=== PATIENT | female | born 1960 | race Caucasian/White ===

== ENCOUNTER 2020-10-06 16:11 | Inpatient (IN) | payer SELFPAY ==
[~2020-10-06] VITALS: Ht 157.5 cm; Wt 157.5 kg
[2020-10-06 17:04] LABS: BASOPHILS ABSOLUTE AUTO 0.02 K/mm3 (0.00-0.23); BASOPHILS PERCENT AUTO 0 % (0-2); EOSINOPHILS ABSOLUTE AUTO 0.01 K/mm3 (0.00-0.68); EOSINOPHILS PERCENT AUTO 0 % (0-6); Hematocrit 42.5 % (33.0-51.0); Hemoglobin 14.5 g/dL (11.5-16.0); IMMATURE GRAN ABSOLUTE AUTO 0.07 K/mm3 (0.00-0.10); IMMATURE GRAN PERCENT AUTO 1 % (0-1); LYMPHOCYTES ABSOLUTE AUTO 0.56 K/mm3 (0.84-5.20); LYMPHOCYTES PERCENT AUTO 5 % (21-46); MONOCYTES ABSOLUTE AUTO 0.47 K/mm3 (0.16-1.47); MONOCYTES PERCENT AUTO 4 % (4-13); Mean Corpuscular HGB 28.8 pg (26.0-34.0); Mean Corpuscular HGB Conc 34.1 g/dL (31.5-36.5); Mean Corpuscular Volume 84 fL (80-100); Mean Platelet Volume 9.4 fL (9.1-12.4); NEUTROPHILS ABSOLUTE AUTO 9.91 K/mm3 (1.96-9.15); NEUTROPHILS PERCENT AUTO 90 % (41-73); Platelet Count 281 K/mm3 (150-400); RDW Coefficient Variation 12.9 % (11.7-14.2); Red Blood Cell Count 5.04 M/mm3 (3.80-5.20); White Blood Cell Count 11.04 K/mm3 (4.00-11.30)
[2020-10-06 17:35] LABS: Troponin I <0.015 ng/mL (0.000-0.040)
[2020-10-06 17:36] LABS: Alanine Aminotransfer (ALT/SGP 174 U/L (12-78); Albumin, Blood 2.7 g/dL (3.4-5.0); Albumin/Globulin Ratio 0.6 (0.8-1.8); Alk Phos 135 U/L (50-136); Anion Gap 5 mmol/L (6-16); Aspartate Aminotrans (AST/SGOT 194 U/L (12-37); Bilirubin, Total 1.3 mg/dL (0.1-1.0); Blood Urea Nitrogen 20 mg/dL (8-24); CO2, Blood 30 mmol/L (21-32); Calcium, Blood 8.2 mg/dL (8.5-10.1); Chloride, Blood 100 mmol/L (98-108); Globulin, Blood 4.5 g/dL (2.2-4.0); Glomerular Filtration Rate 57 (60-); Glucose, Blood 132 mg/dL (70-99); Potassium, Blood 3.2 mmol/L (3.5-5.5); Sodium, Blood 135 mmol/L (136-145); Total Protein, Blood 7.2 g/dL (6.4-8.2)
[2020-10-07 05:26] LABS: BASOPHILS ABSOLUTE AUTO 0.01 K/mm3 (0.00-0.23); BASOPHILS PERCENT AUTO 0 % (0-2); EOSINOPHILS PERCENT AUTO 0 % (0-6); Hematocrit 41.6 % (33.0-51.0); Hemoglobin 13.9 g/dL (11.5-16.0); IMMATURE GRAN ABSOLUTE AUTO 0.08 K/mm3 (0.00-0.10); IMMATURE GRAN PERCENT AUTO 1 % (0-1); LYMPHOCYTES ABSOLUTE AUTO 0.62 K/mm3 (0.84-5.20); LYMPHOCYTES PERCENT AUTO 5 % (21-46); MONOCYTES ABSOLUTE AUTO 0.41 K/mm3 (0.16-1.47); MONOCYTES PERCENT AUTO 3 % (4-13); Mean Corpuscular HGB 28.4 pg (26.0-34.0); Mean Corpuscular HGB Conc 33.4 g/dL (31.5-36.5); Mean Corpuscular Volume 85 fL (80-100); Mean Platelet Volume 9.1 fL (9.1-12.4); NEUTROPHILS ABSOLUTE AUTO 11.51 K/mm3 (1.96-9.15); NEUTROPHILS PERCENT AUTO 91 % (41-73); Platelet Count 274 K/mm3 (150-400); RDW Coefficient Variation 12.8 % (11.7-14.2); RDW Standard Deviation 39.8 fL (35.1-46.3); White Blood Cell Count 12.63 K/mm3 (4.00-11.30)
--- NOTE | 2020-10-07 05:33 | NUR ---
SHIFT SUMMARY REPORT HEATHER KINCAID, PT TO ROOM VIA STRETCHER @2770 AND SLID TO THE BED. PT IS ALERT AND ORIENTED X4, FOLLOWS COMMANDS. 02 SATS 88-92% ON BIPAP 21/12 FI02 100% RR 30s-40s, ATIVAN HELPS. DYSPNEA WITH EXERTION AND SPEAKING. UNABLE TO ANSWER HISTORY QUESTIONS DUE TO OXYGEN NEEDS AND 02 SATS DROPPING TO 79%. PATIENT NAUSEOUS AT TIMES, MEDICATED PER EMAR. BECOMES VERY SOB WHEN BEING TURNED. PT PULLS OFF BIPAP EVEN THOUGH SHE KNOWS RISK OF DOING THIS. REPOSITIONED AND CHANGED Q2 HOURS. INCONTINENT AT TIMES. NPO. CALL LIGHT IN REACH.
[2020-10-07 05:56] LABS: Alanine Aminotransfer (ALT/SGP 146 U/L (12-78); Albumin, Blood 2.4 g/dL (3.4-5.0); Albumin/Globulin Ratio 0.5 (0.8-1.8); Alk Phos 131 U/L (50-136); Anion Gap 6 mmol/L (6-16); Aspartate Aminotrans (AST/SGOT 102 U/L (12-37); Bilirubin, Total 0.8 mg/dL (0.1-1.0); Blood Urea Nitrogen 19 mg/dL (8-24); Bun/Creatinine Ratio 22.6 (12.0-20.0); CO2, Blood 27 mmol/L (21-32); Calcium, Blood 8.3 mg/dL (8.5-10.1); Chloride, Blood 103 mmol/L (98-108); Creatinine, Blood 0.84 mg/dL (0.40-1.00); Globulin, Blood 4.8 g/dL (2.2-4.0); Glomerular Filtration Rate >60 (60-); Glucose, Blood 137 mg/dL (70-99); Sodium, Blood 136 mmol/L (136-145); Total Protein, Blood 7.2 g/dL (6.4-8.2)
--- NOTE | 2020-10-07 07:35 | NUR ---
INITIAL ASSESSMENT: PT IS RESTING WITH EYES CLOSED RESP E/U, BI-PAP ON SETTINGS 16/10 FIO2 100%. PT EASILY AWAKENS WITH VERBAL STIMULI. DENEIS PAIN AT THIS TIME. HRR. LS DIM T/O. DISCUSSED PRONING AND/OR TURNING TO HELP WITH OXYGENATION. OXYGEN SATURATIONS CURRENTLY 87-88%. BT+. PPP. OTHER VSS. WHEN ASKED ABOUT PLAN OF CARE PT STATES SHE WANTS TO STAY ON THE CURRENT REGEMINE, PT REITERATES SHE DOES NOT WANT TO BE INTUBATED. AM MEDS GIVEN AT THIS TIME. PT DENEIS NEEDS. CALL LIGHT IN REACH, WILL CONTINUE TO MONITOR.
--- NOTE | 2020-10-07 09:50 | NUR ---
Pal Care Note: Contacted by RN due to pt's worsening resp status, with request to contact family, especially , who is currently long haul septic pump truck [place] I was able to reach both and pt's eileen, Amarilys, who was with her mom at [facility] yesterday. Update provided to them re: pt's cont decline and max resp support provided within her stated and confirmed wishes of DNR/DNI. is getting on a flight home tomorrow. His questions were answered and time spent supporting and listening. He states Catrachita has suffered with severe chronic pain for at least 10 years and that they have discussed their DNR wishes for about 20 years now and she has been consistent. Eileen also confirms this. Pt and family want to cont tx as is and verbalize understanding that pt has a very guarded, precarious prognosis and likelihood of further decline. Also had long conversation with Amarilys and was able to get permission for 5 total family memebers to come in for short visit today. They were coached on screening criteria, pt's profound fatigue and inability to converse, PPE, straight in/out. Screeners notified of permission for family to visit. Discussed s/s and medications available prn with RN. Discussed current plan of care and concerns.
--- NOTE | 2020-10-07 11:30 | NUR ---
PT GIVEN A BED BATH. WOUND UNDER LEFT BREAST WITH SLIGHT TUNNELING NOTED OOZING PURLENT YELLOW FLUID, CLEANSED. ATTENDS AND LINEN CHANGE. RASHID PLACED FOR STRICT I&O AND TO DECREASE PT EXERTION, DARK YELLOW URINE DRAINING, UA SENT. VSS. DISCUSSED WITH PALLIATIAVE CARE PTS FRAGILE STATUS. CALLS PLACED TO DAUGHTER, PLAN TO HAVE FAMILY COME TO SEE THE PATIENT TODAY. CALL PLACED TO TO HAVE HIM COME HOME SO HE CAN SEE HIS . PT HAS POOR TOLERANCE OF BEING OFF THE BI-PAP AND TURINING. SATS DROP DOWN TO THE 70S. CALL LIGHT IN REACH. WILL CONTINUE TO MONITOR.
[2020-10-07 12:08] LABS: Source, Urine Catheter
[2020-10-07 12:17] LABS: Appearance, Urine Clear (Clear); Bilirubin, Urine Neg (Neg); Blood, Urine 2+ (Neg); Color, Urine Yellow (P-Yellow); Glucose Qualitative, Urine Neg (Neg); Ketones, Urine 3+ (Neg); Leukocyte Esterase, Urine 1+ (Neg); Nitrite, Urine Neg (Neg); Protein, Urine 2+ (Neg); Urobilinogen, Urine 1+ (Normal)
[2020-10-07 12:31] LABS: Bacteria Many /hpf; Squamous Epithelial Cells Few /hpf (Few)
--- NOTE | 2020-10-07 15:30 | NUR ---
SON AT BEDSIDE. ASSESSMENT UNCHANGED. BIOX 85-90% WITH BI-PAP SETTINGS 16 FIO2 100%. IV ABX AND IV REMDESVIR GIVEN AT THIS TIME. OTHER VSS. PT AND FAMILY DENIES NEEDS AT THIS TIME. CALL LIGHT IN REACH. WILL CONTINUE TO MONITOR.
--- NOTE | 2020-10-07 18:38 | NUR ---
SUMMARY: PATIENT WAS ADMITTED WITH COVID LAST EVENING. SINCE ADMISSION HER OXYGEN REQUIREMENTS HAVE BEEN MAXED OUT WITH BI-PAP SETTINGS 16/13 AND FIO2 100%. FAMILY HAS BEEN AT BEDSIDE FOR ADVANCED CARE PLANNING. WILL CONTINUE COURSE OF TX. PT WISHES STILL REMAIN TO BE DNR. WILL REPORT TO ONCOMING RN.
[2020-10-08 04:19] LABS: BASOPHILS ABSOLUTE AUTO 0.01 K/mm3 (0.00-0.23); BASOPHILS PERCENT AUTO 0 % (0-2); EOSINOPHILS PERCENT AUTO 0 % (0-6); Hematocrit 40.6 % (33.0-51.0); Hemoglobin 13.5 g/dL (11.5-16.0); IMMATURE GRAN ABSOLUTE AUTO 0.05 K/mm3 (0.00-0.10); IMMATURE GRAN PERCENT AUTO 1 % (0-1); LYMPHOCYTES PERCENT AUTO 9 % (21-46); MONOCYTES ABSOLUTE AUTO 0.82 K/mm3 (0.16-1.47); MONOCYTES PERCENT AUTO 9 % (4-13); Mean Corpuscular HGB 28.7 pg (26.0-34.0); Mean Corpuscular HGB Conc 33.3 g/dL (31.5-36.5); Mean Corpuscular Volume 86 fL (80-100); Mean Platelet Volume 9.3 fL (9.1-12.4); NEUTROPHILS ABSOLUTE AUTO 7.42 K/mm3 (1.96-9.15); NEUTROPHILS PERCENT AUTO 82 % (41-73); Platelet Count 354 K/mm3 (150-400); RDW Coefficient Variation 13.1 % (11.7-14.2); RDW Standard Deviation 41.2 fL (35.1-46.3)
[2020-10-08 04:41] LABS: Anion Gap 6 mmol/L (6-16); Blood Urea Nitrogen 21 mg/dL (8-24); Bun/Creatinine Ratio 26.5 (12.0-20.0); CO2, Blood 28 mmol/L (21-32); Calcium, Blood 8.5 mg/dL (8.5-10.1); Chloride, Blood 105 mmol/L (98-108); Creatinine, Blood 0.79 mg/dL (0.40-1.00); Glomerular Filtration Rate >60 (60-); Glucose, Blood 120 mg/dL (70-99); Potassium, Blood 3.7 mmol/L (3.5-5.5); Sodium, Blood 139 mmol/L (136-145)
--- NOTE | 2020-10-08 05:01 | NUR ---
SHIFT SUMMARY PATIENT IS ALERT AND ORIENTED X3, HAD TROUBLE REMEMBERING WHERE SHE IS, ABLE TO STATE THE YEAR, MONTH, RECOGNIZES FAMILY. 02 SATS 90-95% ON BIPAP @ FI02 100%. ORAL CARE PROVIDED. PATIENTS SATS STILL DROP TO 80% WHEN BEING TURNED. PATIENT KEPT MASK ON ALL SHIFT. REPOSITIONED Q2 HOURS. PICTURE OF LEFT BREAST WOUND IN CHART. RASHID DRAINING. SON WAS IN ROOM AT BEGINNING OF SHIFT BUT LEFT AFTER A COUPLE OF HOURS. UPDATED ON THE PHONE. VSS, NO ACUTE CHANGES. CALL LIGHT IN REACH.
--- NOTE | 2020-10-08 08:45 | NUR ---
INITIAL ASSESSMENT: PATIENT IS AWAKE, SHE PULLED HER BI-PAP OFF AND IS SCRABLING TO FIND HER CALL LIGHT, PT STATES SHE NEEDS TO HAVE A BM. PT ASSISTED TO PLACE BI-PAP BACK ON. PT ASSISTED TO GET ON BED EDWARDS, MED LOOSE BROWN BM NOTED. PT DENIES PAIN AT THIS TIME. HRR, SR IN THE 60S PER TELEMETRY. LS DIM T/O. OXYGEN NEEDS HAVE SLIGHTLY DECREASED PT HAS BEEN BI-PAP DEPENDENT SETTINGS WITH FIO2 95%, BIOX 88-89%. PT ASSISTED TO TURN TO RIGHT SIDE. ORAL CARE DONE. VSS. PT DENIES OTHER NEEDS AT THIS TIME. CALL LIGHT IN REACH. WILL CONTINUE TO MONITOR.
--- NOTE | 2020-10-08 11:30 | NUR ---
ASSESSMENT: UNCHANGED FROM INITIAL ASSESSMENT. FLAT SURFACER WAS ABLE TO TITRATE PATIENTS FIO2 DOWN TO 90% ON THE BI-PAP. POWERGLIDE PLACED. VSS. SON AT BEDSIDE. PT DENIES OTHER NEEDS AT THIS TIME. CALL LIGHT IN REACH. WILL CONTINUE TO MONITOR.
[2020-10-08 14:22] LABS: SARS-Cov-2 (COVID-19) PCR, MMC POSITIVE (NEGATIVE)
--- NOTE | 2020-10-08 15:30 | NUR ---
ASSESSMENT: ASSESSMENT IS UNCHANGED FROM EARLIER. PT GIVEN BED BATH. VSS. FIO2 DECREASED DOWN TO 85%. PT REPOSITIONED. PT AND SON DENY FURTHER NEEDS. CALL LIGHT IN REACH.
--- NOTE | 2020-10-08 17:33 | NUR ---
SUMMARY: PATIENT HAS MADE A SMALL IMPROVEMENT TODAY. FIO2 REQUIREMENTS HAVE BEEN DECREASED FROM 100% DOWN TO 85%, BIOX LOW 90S. LS DIM THE IN THE BASES. VSS. NO ACUTE CHANGES THIS SHIFT, WILL REPORT TO NOC RN.
[2020-10-09 05:17] LABS: BASOPHILS ABSOLUTE AUTO 0.01 K/mm3 (0.00-0.23); BASOPHILS PERCENT AUTO 0 % (0-2); EOSINOPHILS PERCENT AUTO 0 % (0-6); Hematocrit 40.9 % (33.0-51.0); Hemoglobin 13.4 g/dL (11.5-16.0); IMMATURE GRAN ABSOLUTE AUTO 0.15 K/mm3 (0.00-0.10); IMMATURE GRAN PERCENT AUTO 2 % (0-1); LYMPHOCYTES ABSOLUTE AUTO 0.78 K/mm3 (0.84-5.20); LYMPHOCYTES PERCENT AUTO 8 % (21-46); MONOCYTES ABSOLUTE AUTO 0.81 K/mm3 (0.16-1.47); MONOCYTES PERCENT AUTO 8 % (4-13); Mean Corpuscular HGB 28.3 pg (26.0-34.0); Mean Corpuscular HGB Conc 32.8 g/dL (31.5-36.5); Mean Corpuscular Volume 86 fL (80-100); Mean Platelet Volume 9.1 fL (9.1-12.4); NEUTROPHILS ABSOLUTE AUTO 8.34 K/mm3 (1.96-9.15); NEUTROPHILS PERCENT AUTO 83 % (41-73); Platelet Count 425 K/mm3 (150-400); RDW Standard Deviation 40.9 fL (35.1-46.3); Red Blood Cell Count 4.74 M/mm3 (3.80-5.20); White Blood Cell Count 10.09 K/mm3 (4.00-11.30)
--- NOTE | 2020-10-09 05:30 | NUR ---
SHIFT SUMMARY ASSUMED CARE OF PT AT 1900. PT IS A/OX4. PT EXPRESSION IS VERY FLAT AND WITHDRAWN. PT USES HEAD NODS COMMUNICATION DUE TO SOB. PT REMAINS ON THE BIPAP AT FULL CAPACITY. SATURATIONS WERE FROM 83-92%, MOSTLY IN THE HIGH 80S. PT WILL MESS WITH THE BIPAP IN HER SLEEP AND WILL DESATURATE TO 80%, 75% AT ONE POINT IN THE NIGHT. PT WAS REPOSITIONED ON HER SIDE TOLERATED, BUT WOULD ROLL BACK TO HER BACK WHEN REASSESSED. PT CATHER DRAINED 440CC OF DARK IZAIAH URINE. PT HAS A SMALL WOUND UNDER HER L BREAST, DRESSING C/D/I, POWDER APPLIED TO FOLDS. MEPILEX ON PT BOTTOM, DRESSING C/D/I. POWERGILDE DRAWS AND FLUSHES WELL. PT CONTACT LIST WAS UPDATED WITH PERSONS AVAILBLE TO BE NOTIFIED OF CARE. CALL LIGHT IN REACH, BED IN LOWEST POSTION.
[2020-10-09 05:32] LABS: Anion Gap 6 mmol/L (6-16); Blood Urea Nitrogen 23 mg/dL (8-24); Bun/Creatinine Ratio 28.7 (12.0-20.0); CO2, Blood 29 mmol/L (21-32); Calcium, Blood 8.5 mg/dL (8.5-10.1); Chloride, Blood 104 mmol/L (98-108); Glomerular Filtration Rate >60 (60-); Glucose, Blood 119 mg/dL (70-99); Potassium, Blood 3.7 mmol/L (3.5-5.5); Sodium, Blood 139 mmol/L (136-145)
--- NOTE | 2020-10-09 10:30 | NUR ---
Pal Care note: Met with Bladimir outside of pt's room at his request. Pt was sleeping when I arrived with bipap on and did not wake to letting her know he was stepping her out of the room. She looks profoundly fatigued, as expected. Bladimir states that he feels Catrachita's mentation and orientation are at baseline and that when she is awake she is coherent and able to make her own decision. asked if his was suffering with pain. We reviewed non- verbal indicators. He reports that he is seeing some nonverbal indicators of restlessness and discomfort but other than severe dyspnea and overwhelming fatigue, pt has not complained of pain or discomfort. He states he feels like she is already "gone" from him. We discussed her need to focus inward and to expend all energies towards breathing and recovery if she is able. states her wanted to stay home and but was coerced by family into calling 911 and being transported to the hospital. They have discussed their advanced care/EOL wishes with eachother for decades and Bladimir reports that pt's quality of life was poor by her standards prior to this event. He feels that pt is able to make her own decision and understands that if pt becomes confused or experiences decreased LOC due to hypoxia or illness that he will become her decision maker. At this time he feels is ok with continuing treatment as is. He said they have been talking about it since he arrived yesterday. He will let her nurse know if they feel current treatment is prolonging any suffering and if they want to transition to comfort care. We discussed what comfort care looks like her in the hospital and which treatments would be continued or discontinued to support Catrachita's goal of comfort if she decides on that goal of care. Pt's RN included in the conversation towards the end and she is updated on the plan. Dr updated on the plan also and I case conferenced with him prior to my visit. Pt's KPS score is 20% and her PPS score is 20-30% at this time. Pt is bipap dependent and saturations drop into the 70's from baseline of 80's with any movement or exertion, such as taking sips of fluid or turning. She is half way thru her Remdesivir tx.
--- NOTE | 2020-10-09 17:34 | NUR ---
PT SUMMARY: PT REMAINS ON MAX 100% BIPAP INCREASED PRESSURE SETTINGS TO 17/15 PT SATTING 80-88%. SECOND DOSE OF REMDESIVIR GIVEN TODAY. AT BEDSIDE MOST OF THE SHIFT, WAS ABLE TO HAVE DISCUSSION WITH THE PALLIATIVE CARE NURSE ABOUT THE PLAN AND IS ENCOURAGED TO WAIT TIL AFTER 2 MORE DOSES OF REMDESIVIR TO SEE HOW THE PATIENT RESPONDS AND DECIDE FROM THERE. PT ALSO AGREEABLE WITH THE PLAN. PT REPOSITIONED IN BED FOR COMFORT AND BETTER BREATHING. TAKES SIPS OF WATER /ICE CHIPS FOR DRY MOUTH. NO OTHER COMPLAINS REPORTED. REMAINS ON THE BEDSIDE CALL LIGHTS IN REACH WILL MONITOR.
[2020-10-10 03:57] LABS: BASOPHILS ABSOLUTE AUTO 0.01 K/mm3 (0.00-0.23); BASOPHILS PERCENT AUTO 0 % (0-2); EOSINOPHILS ABSOLUTE AUTO 0.01 K/mm3 (0.00-0.68); EOSINOPHILS PERCENT AUTO 0 % (0-6); Hematocrit 40.1 % (33.0-51.0); Hemoglobin 13.2 g/dL (11.5-16.0); IMMATURE GRAN ABSOLUTE AUTO 0.17 K/mm3 (0.00-0.10); IMMATURE GRAN PERCENT AUTO 2 % (0-1); LYMPHOCYTES ABSOLUTE AUTO 0.82 K/mm3 (0.84-5.20); LYMPHOCYTES PERCENT AUTO 9 % (21-46); MONOCYTES PERCENT AUTO 8 % (4-13); Mean Corpuscular HGB 28.3 pg (26.0-34.0); Mean Corpuscular HGB Conc 32.9 g/dL (31.5-36.5); Mean Corpuscular Volume 86 fL (80-100); Mean Platelet Volume 8.8 fL (9.1-12.4); NEUTROPHILS ABSOLUTE AUTO 7.66 K/mm3 (1.96-9.15); NEUTROPHILS PERCENT AUTO 81 % (41-73); Platelet Count 461 K/mm3 (150-400); RDW Coefficient Variation 12.8 % (11.7-14.2); RDW Standard Deviation 40.3 fL (35.1-46.3); Red Blood Cell Count 4.67 M/mm3 (3.80-5.20); White Blood Cell Count 9.47 K/mm3 (4.00-11.30)
[2020-10-10 04:13] LABS: Anion Gap 7 mmol/L (6-16); Blood Urea Nitrogen 21 mg/dL (8-24); Bun/Creatinine Ratio 29.2 (12.0-20.0); CO2, Blood 30 mmol/L (21-32); Calcium, Blood 8.3 mg/dL (8.5-10.1); Chloride, Blood 105 mmol/L (98-108); Creatinine, Blood 0.72 mg/dL (0.40-1.00); Glomerular Filtration Rate >60 (60-); Glucose, Blood 120 mg/dL (70-99); Potassium, Blood 3.5 mmol/L (3.5-5.5); Sodium, Blood 142 mmol/L (136-145)
--- NOTE | 2020-10-10 06:24 | NUR ---
SHIFT SUMMARY NO ACUTE CHANGES THIS SHIFT. PT RESPONDING TO VERBAL STIMULI BUT DROWSY. SP02 84-94% ON BIPAP 100% FI02. PT SHALLOW BREATHING. PULLED OFF BIPAP X1, ATTEMPTED TO DO SO MULTIPLE TIMES, PT ENCOURAGED TO LEAVE BIPAP ON. TELEMETRY READS NSR, HR 60'S. RASHID CATHETER DRAINING DARK URINE TO GRAVITY. NO BM THIS SHIFT. PT WAS REPOSITIONED Q2H, CURRENTLY FLOATING ON PILLOWS. CALL LIGHT IN REACH.
--- NOTE | 2020-10-10 15:39 | NUR ---
Made a visit at approx 1345. Pt's just left the room per RN. Pt does exhibit less anxiety when present. When left, pt was able to pull the facial mask off enough that RN had to assist with putting it back in place. Today was day 4 of 4 doses of remdesevir. Pt's 02 has improved, but will need to continue for pt to d/c home safely, per . However, pt's continues to voice concern regarding her ability to "bounce back" from this. ADL's: Pt currently only able to perform 1-2 with partial assist Cognitive status: Pt answers most questions appropriately Risk Factors: Covid, obesity, resp failure ongoing
--- NOTE | 2020-10-10 18:36 | NUR ---
PT REMAINS ON CONTINUOUS BIPAP AT 75% AT THE END OF THE SHIFT. S/O IS AT BEDSIDE AND HAS BEEN PROVIDED WITH CONTINUOUS UPDATES THEY BECAME AVAILABLE. PT MORE ALERT THIS EVENING, SMILING AND INTERACTING WITH STAFF. PT ANSWERS IN NODS AND 1-2 WORD SENTENCES. PT WAS PLACED ON FULL FACE MASK FOR BIPAP. RASHID TO REMAIN IN PLACE UNTIL TOMORROW.
--- NOTE | 2020-10-11 05:38 | NUR ---
PATIENT IS SLEEPING THROUGHOUT THE NIGHT EASILY AROUSABLE, BIPAP 100% FIO2 12/17, LDTA THROUGHOUT, PATIENT VITALS ARE UNCHANGED AND STABLE. RASHID CATHETER IS INTACT BELOW THE BLADDER OFF THE FLOOR, NOTED PINK TINGED STRING IN BAG, LIGHT YELLOW/ORANGE URINE, NO C/O OF PAIN SLEPT OFF/ON THROUGHOUT THE NIGHT, AND CALL LIGHT IS WITHIN REACH.
[2020-10-11 12:14] LABS: Base Excess Venous 8.9 mmol/L; Bicarbonate Venous 30.9 mmol/L (24.0-30.0); PCO2 Venous 43.9 mmHg (38-42); PO2 Venous 37.3 mmHg (38-42); pH Blood Venous 7.48 (7.34-7.37)
--- NOTE | 2020-10-11 18:45 | NUR ---
PT WITH BIPAP SETTING / AT 100%. PT EXPRESSES LITTLE INTEREST IN CARE TODAY, EXPRESSED SHE IS DEPRESSED THAT O2 NEEDS INCREASED TODAY. S/O HASREMAINED AT THE BEDSIDE MOST OF THE DAY. PT WAS REPOSITIONED TODAY WHICH CAUSED HER TO DESATURATE INTO THE 70s WITH VERY LITTLE MOVEMENT, MD WAS MADE AWARE THAT PT WAS NOT ABLE TO TOLERATE ANY ACTIVITY TODAY, PER SPOUSE PT DOES NOT PERFORM MUCH ACTIVITY AT HOME ATBASE LINE FORTHE LAST 10 YEARS STS "SHE'S JUST INHER CHAIR"
--- NOTE | 2020-10-11 21:30 | NUR ---
PT OFF BIPAP PT DESATS INTO HIGH 60'S LOW 70'S AFTER REMOVING BIPAP IN ROOM, THIS RN ASKS PT TO REPLACE BIPAP THROUGH GLASS DRESSING FOR ISO, PT LOOKS AT THIS RN, DOES NOT REPLACE BIPAP. THIS RN TO BEDSIDE TO REPLACE BIPAP. PT SLOW TO RECOVER SATS. WHEN ASKED WHY SHE REMOVED HER BIPAP PT ONLY SAYS "TIRED". THIS RN OFFERS MOIST SWAB AFTER PT REQUESTS WATER OR ICE CHIPS. LS DIMINISHED T/O. DENIES CP. BACK ON BIPAP AT 17/15 AND 100% FIO2.
[2020-10-12 04:23] LABS: BASOPHILS ABSOLUTE AUTO 0.02 K/mm3 (0.00-0.23); BASOPHILS PERCENT AUTO 0 % (0-2); EOSINOPHILS ABSOLUTE AUTO 0.04 K/mm3 (0.00-0.68); EOSINOPHILS PERCENT AUTO 0 % (0-6); Hematocrit 39.5 % (33.0-51.0); Hemoglobin 13.2 g/dL (11.5-16.0); IMMATURE GRAN ABSOLUTE AUTO 0.32 K/mm3 (0.00-0.10); IMMATURE GRAN PERCENT AUTO 3 % (0-1); LYMPHOCYTES PERCENT AUTO 7 % (21-46); MONOCYTES ABSOLUTE AUTO 0.89 K/mm3 (0.16-1.47); MONOCYTES PERCENT AUTO 7 % (4-13); Mean Corpuscular HGB 28.4 pg (26.0-34.0); Mean Corpuscular HGB Conc 33.4 g/dL (31.5-36.5); Mean Corpuscular Volume 85 fL (80-100); Mean Platelet Volume 9.2 fL (9.1-12.4); NEUTROPHILS ABSOLUTE AUTO 9.94 K/mm3 (1.96-9.15); NEUTROPHILS PERCENT AUTO 83 % (41-73); Platelet Count 494 K/mm3 (150-400); RDW Coefficient Variation 12.7 % (11.7-14.2); RDW Standard Deviation 39.5 fL (35.1-46.3); Red Blood Cell Count 4.64 M/mm3 (3.80-5.20); White Blood Cell Count 12.01 K/mm3 (4.00-11.30)
[2020-10-12 04:56] LABS: Anion Gap 7 mmol/L (6-16); Blood Urea Nitrogen 21 mg/dL (8-24); Bun/Creatinine Ratio 34.5 (12.0-20.0); CO2, Blood 31 mmol/L (21-32); Calcium, Blood 8.8 mg/dL (8.5-10.1); Chloride, Blood 104 mmol/L (98-108); Creatinine, Blood 0.61 mg/dL (0.40-1.00); Glomerular Filtration Rate >60 (60-); Glucose, Blood 116 mg/dL (70-99); Potassium, Blood 3.2 mmol/L (3.5-5.5); Sodium, Blood 142 mmol/L (136-145)
--- NOTE | 2020-10-12 07:48 | NUR ---
SHIFT SUMMARY PT APPEARED CONFUSED AT START OF SHIFT FOLLOWING PULLING BIPAP OFF AND FAILING TO FOLLOW INSTRUCTIONS BY STAFF TO PLACE BIPAP BACK ON WHILE STAFF GOWN UP AT ANTI-ROOM WINDOW. PT HAS FLAT AFFECT WHEN THIS RN TO BEDSIDE TO REPLACE BIAP. PT CONFUSED REGARDING ORIENTING QUESTIONS, ABLE TO INDICATE TINGLING AND DISCOMFORT IN L LEG, RESOLVED W/ELEVATION AND REPOSITIONING. PT SINUS RHYTHM 70'S. DENIES CP. RASHID BAG HAD MURKY IZAIAH-BROWN COLORED URINE AT START OF SHIFT W/STRANGE PINKISH-RED FILM TO BAG TUBING. THIS RN CHANGED BAG IN NIGHT, TUBING ACCUMULATED MORE PINK FILM, URINE IS SOMEWHAT ORTHOTIC/PROSTHETIC CLINICIAN W/LESS OUTPUT. PT MAINTAINED NPO THROUGH NIGHT D/T DESAT OFF BIPAP FOR BRIEF PERIODS, AND ORAL CARE W/MOIST SWABS AND MOUTH MOISTURIZER APPLICATIONS. PT PULLED OFF BIPAP ONE MORE TIME DURING SHIFT, REPLACED BY TO GONZALEZ AT BEDSIDE. PT MAINTAINED 17/15 W/100% FIO2 THROUGH NIGHT ON BIPAP WHEN KEPT ON. THIS RN ATTEMPTED TO REPOSITION PT D/T DESPITE PRIOR REFUSALS, PT ABLE TO BE PROPPED MORE TO R SIDE W/PILLOWS. IV'S AND POWERGLIDE IN CHON SALINE LOCKED. THIS RN ADRESSES CONCERNS W/ZACH RN DURING REPORT REGARDING LACK OF MAINTENANCE FLUIDS AND PT'S WORSENING URINE AND INCREASED WBC.
--- NOTE | 2020-10-12 18:47 | NUR ---
PT HAS BEEN DISINTERESTING IN PARTICIPATION IN CARE T/O THE DAY. PT WILL NOT [facility] CONTACT WITH STAFF. PT IS ALERT, ANSWERS QUESTIONS WITH HAND GESTURES. TOWARDS THE END OF THE SHIFT PT BEGAN REMOVING HER MASK AND REFUSING TO ALLOW IT TO BE REPLACED, GRABS AT STAFF AND IMMEDIATELY REMOVES THE MASK, PT'S SPO2 ENDED UP FALLING INTO THE LOW 70s DURING THIS EVENT, PT STS THAT SHE REFUSES TO WEAR THE MASK BECAUSE "I AM HOT" PT IS EDUCATED THAT THE TEMPERATURE IN THE ROOM AN BE ADJUSTED AND FAN PUT ON HER PT STS "NO!" PT EXPRESSES THAT SHE NO LONGER WANTS TO COMPLY WITH TREATMENT, SHE IS EDUCATED THOROUGHLY ABOUT REFUSING TO WEAR MASK AND HOW SHE WILL LIKELY FROM EVIDENCE OF THE RAPIDLY DECREASING SPO2 WHEN SHE REMOVED HER MASK PT STS "I'M HOT I AM NOT WEARING IT" THE HEATED HUMIDITY IS TURNED OFF AND ROOM TEMP IS TURNED ALL OF THE WAY DOWN, PT AGREES TO WEAR THE MASK FOR NOW. IS UPDATED. PALLIATIVE CARE IS UPDATED.
--- NOTE | 2020-10-12 19:00 | NUR ---
PT WAS NOT ABLE TO TOLERATE REMOVAL OF BIPAP TO EAT DINNER TRAY
[2020-10-13 06:09] LABS: PCO2 Arterial 41.4 mmHg (35-45); PO2 Arterial 51.7 mmHg (80-100); pH Blood Arterial 7.52 (7.35-7.45)
[2020-10-13 07:00] LABS: Alanine Aminotransfer (ALT/SGP 43 U/L (12-78); Albumin, Blood 2.2 g/dL (3.4-5.0); Albumin/Globulin Ratio 0.5 (0.8-1.8); Alk Phos 68 U/L (50-136); Anion Gap 5 mmol/L (6-16); Aspartate Aminotrans (AST/SGOT 18 U/L (12-37); Bilirubin, Total 0.6 mg/dL (0.1-1.0); Blood Urea Nitrogen 19 mg/dL (8-24); Bun/Creatinine Ratio 28.6 (12.0-20.0); CO2, Blood 32 mmol/L (21-32); Calcium, Blood 8.6 mg/dL (8.5-10.1); Chloride, Blood 103 mmol/L (98-108); Creatinine, Blood 0.66 mg/dL (0.40-1.00); Globulin, Blood 4.2 g/dL (2.2-4.0); Glomerular Filtration Rate >60 (60-); Glucose, Blood 113 mg/dL (70-99); Potassium, Blood 3.3 mmol/L (3.5-5.5); Sodium, Blood 140 mmol/L (136-145); Total Protein, Blood 6.4 g/dL (6.4-8.2)
--- NOTE | 2020-10-13 07:54 | NUR ---
SHIFT SUMMARY PT AOX3, SINUS 70'S, NO CP ON BIPAP. SATS LOW 90'S ON BIPAP. RAPIDLY DESATS OFF OF BIPAP. THIS RN ABLE TO PERFORM X1 ORAL CARE, PT REFUSED OTHER OFFERS OF ORAL CARE OR MOIST SWABS. ACCEPTED SIPS OF WATER. PT'S EXPRESSED CONCERN TO THIS RN OUTSIDE ROOM THAT PT MAY BE READY TO . THIS RN HAD ASKED TO CLARIFY W/PT D/T PT NOT SPEAKING OPENLY OR WILLINGLY WITH THIS RN. PER OF PT, PT EXPRESSED FEELINGS THAT NURSING STAFF DID NOT CARE FOR HER AND THAT SHE WANTED TO KEEP FIGHTING. ASKED TO RETURN IN AM TO BE PRESENT DURING HOSPITALIST ROUNDING TO BE PRESENT FOR MORE THOROUGH DISCUSSION OF PT'S WISHES. TELLS THIS RN THAT PT HAS BEEN DONE FOR "AWHILE". BRINGS PT'S GLASSES, STATES PT IS UNABLE TO SEE TV W/O THEM. PT REQUESTS GLASSES REMAIN ON T/O SHIFT. THIS RN PLACES GLASSES ON PT UNDER BIPAP STRAPS. PT EXPRESSES FRUSTRATION W/BIPAP T/O SHIFT W/LEAKS AND WHEN PULLING OFF BIPAP AND UNABLE TO PLACE IT BACK ON. PT OTHERWISE RESTFUL ON BIPAP. REFUSED REPOSTIONING. IZAIAH COLORED URINE OUTPUT IN RASHID W/PINK STAIN TO RASHID TUBING SIMILAR TO NIGHT PRIOR. IV'S AND POWERGLIDE SALINE LOCKED. PT DEMONSTRATES USE OF CALL LIGHT T/O SHIFT W/NEEDS OR WHEN REMOVING MASK.
--- NOTE | 2020-10-13 08:54 | NUR ---
PT LAYING IN BED WITH EYES CLOSED, SPOUCE AT BEDSIDE, SHE WILL SHAKE HEAD YES/NO, BIPAP IN PLACE, SPOUCE STATES IF IT IS REMOVED HER 02 LEVEL DROPS WITHIN A FEW SECONDS, HE ASKED ABOUT GIVING HER ICECHIPS, EXPLAINED NOT TO DO THAT, BUT WILL WET HER MOUTH WITH A WET SWAB, SHE SHOOK HER HEAD NO, LUNGS ARE CLEAR DIM IN UPPER JOHNSON, VERY DIM IN BASES, NO COUGH NOTED, HRR, TELE IN PLACE RUNNING SR PER MONITOR, SEE STRIP, TRACE EDEMA NOTED TO B/L LE, PPP+2, CAP REFILL <3SEC, VS STABLE, AFEBRILE, IV SITES ARE CLEAR AND PATENT, BTX4, ABD LARGE SOFT NONTENDER, RASHID CATH DRAINING PINK TINGED TUBE, WITH IZAIAH URINE, SKIN C/W/D, NOT MOVING EXT, YISEL, CALL LIGHT IN REACH. PALLATIVE CARE NURSE SPEAKING WITH SPOUCE.
--- NOTE | 2020-10-13 14:13 | NUR ---
Met with pt and her today 2 times; once alone and once with Dr Black. Pt and her have been talking about her condition, and what that means for her future. Once Dr. Black discussed possible trach, pt decided against futher treatment, and would like to remove her bipap mask. I asked her if she understands she will not survive, and she states "Yes". Her is also in agreement. Referred with Dr. Black, and he states while he will not give comfort care orders today, he will approve comfort medications if the pt takes her mask off.
--- NOTE | 2020-10-13 14:22 | NUR ---
Pt has removed her mask. Comfort care orders being placed now.
--- NOTE | 2020-10-13 15:09 | NUR ---
Pastoral care visit conducted. Pt was being attended to by her Bladimir who remained at her side the duration. Pt gave a nod when quiried and proceeded to rest. Bladimir spoke at length about the events leading to pt's current condition. Bladimir reports that his dale is an important component in processing his circumstances. Opportunity for emotional decompression was provided with normalization of felt expressions extended. Bladimir expresses his grief that he will miss his but that she will "soon be with Hugh." Prayer was offered and Bladimir readily accepted while joining in. Pastoral care will remain available as needed.
--- NOTE | 2020-10-13 16:58 | NUR ---
Pt is a morbidly obese 60 year old female who has been hospitalized since 10/06/20 with Covid and viral pneumonia. She presented with hypoxic respiratory failure, and was placed on bi-pap. She has been in PCU for the past 7 days. She is at 90% 02 sats with Fi02 set at 100%, and this is without activity. When she does move, even just moving in bed, her 02 drops into the 70's to 80's. Today however, she attempted to sit up at edge of bed with her feet dangling. She was unable to complete this task however, because her 02 dropped into the 70's and her heart rate went into the low 40's. It took around 25 minutes to recover. Per pt's , she has been extremely sedentary related to chronic pain for roughly 20 years. She did decide today to remove the bi-pap, and her is fully supportive of her decision. Pt and are aware that removing the bipap mean she will pass away, and wanted to move forward with this today. She is currently not wearing her bipap and has been receiving low dose of pain and anxiety medication since removing her mask, and she is tolerating well. is at bedside and every supportive.
--- NOTE | 2020-10-13 18:17 | NUR ---
PT HAS BEEN CHANGED TO COMFORT CARE, BIPAP MASK OFF, SHE HAS BEEN MEDICATED NEEDED FOR COMFORT, AND IS RELAXED AND IN NO DISTRESS, SPOUCE BY HER SIDE, CALL LIGHT IN REACH.
--- NOTE | 2020-10-13 20:41 | NUR ---
PT UPDATE THIS RN TO BEDSIDE TO OFFER PT PRN MEDS FOR ANXIETY AND DISCOMFORT PER ORDERS. PT REFUSES AT THIS TIME. TELLS THIS RN "NO PAIN". PERIODS OF BRIEF APNEA OBSERVED. PT DOES NOT ANSWER ORIENTING QUESTIONS FOR THIS RN BUT SHAKES HEAD YES OR NO AND PROVIDES SHORT ANSWERS. S/O AT BEDSIDE WITH PT.
--- NOTE | 2020-10-13 23:16 | NUR ---
UPDATE PER RAMONA VELOZ RN, PT MEDICATED W/ROXANOL PER ORDERS D/T INCREASED GROANING AND WAS AGREEABLE TO ADMIN OF MED FOR COMFORT.
--- NOTE | 2020-10-14 06:05 | NUR ---
PT UPDATE THIS RN TO BEDSIDE TO REASSESS PT COMFORT W/DOSE OF 20 MG OF ROXANOL PER PRN ORDER D/T LEVEL OF PT DISCOMFORT AT LAST DOSE. S/O AT BEDSIDE ON PHONE, PT'S BREATHING APPEARS LESS LABORED, FASTER RATE, NO MOANING IS HEARD, PT HAS A PEACEFUL EXPRESSION ON HER FACE. THIS RN SPEAKS WITH S/O AT BEDSIDE REGARDING CHANGES TO PT'S BREATHING. S/O VERBALIZES UNDERSTANDING OF CHANGE, THIS RN EMPTIES RASHID BAG. PT'S HR ON SAT PROBE IN PLACE PER S/O REQUEST SHOWS DROP FROM 100'S-110'S TO 70'S SUDDENLY. PT SATS IN 40'S. TELE CALLS TO ENSURE THIS RN IS AWARE OF SUDDEN DROP. PT'S HR CONTINUES TO DROP INTO 40'S AND THEN 30'S. PT APPEARS PEACEFUL, BREATHING SLOWS UNTIL SUDDEN STOP AFTER A PERIOD OF APNEA. TIME OF STOP OF BREATHING AT 0615. RAMONA VELOZ RN NOTIFIES THIS RN OF PT IN ASYSTOLE ON THE MONITOR. TELE BOX DISCONNECTED, SAT PROBE REMOVED. S/O AT BEDSIDE GIVEN VERBAL REASSURANCE AND SUPPORT BY THIS RN. DENIES NEEDS AT THIS TIME. THIS RN NOTIFIES S/O THAT I WILL RETURN W/UPDATE OF PLAN FOR FURTHER CARE.
--- NOTE | 2020-10-14 07:39 | NUR ---
SHIFT SUMMARY PT LETHARGIC AND TACHYPNEIC AT START OF SHIFT, ABLE TO SHAKE HEAD YES AND NO TO QUESTIONS BY THIS RN BUT OTHERWISE ONLY FEW WORD ANSWERS TO QUESTIONS REGARDING HER NEEDS/COMFORT. S/O AT BEDSIDE EXPRESSED CONCERNS AT START OF SHIFT REGARDING WANTING TO EXPEDITE THE DYING PROCESS. THIS RN EXPLAINED TO PT DID RAMONA VELOZ RN THAT THE GOAL IS TO PROVIDE PT W/COMFORT, AND THAT MEDICATIONS ORDERED PRN ARE FOR COMFORT, AND NOT FOR EXPEDITING THE DYING PROCESS. S/O VERBALIZED UNDERSTANDING. PT HAD PERIODS OF MOANING AND APPEARED UNCOMFORTABLE, MEDICATED PER ORDERS. S/O NOTIFIED THROUGH SHIFT TO CALL AND CONTACT CALENDAR CONTROL CLERK BLOOD BANK IF HE FELT PT WAS UNCOMFORTABLE OR COMFORT WAS NOT AT ACCEPTABLE LEVEL. THIS RN DID NOT REPOSITION PT FROM POSITION OF COMFORT LAYING SUPINE PT PREFERS TO LAY ON HER BACK EVIDENCED BY THIS RN CARING FOR PT NIGHT PRIOR AND S/O VERIFYING PT'S PREFERRED POSITIONING. ON MOST RECENT ASSESSMENT AT BEDSIDE TO ADMIN MORE ORDERED PRN MEDICATION, PT'S BREATHING CHANGED, HR SLOWED, AND PT WAS REPORTED TO BE IN ASYSTOLE. PT APPEARED PEACEFUL, S/O IN AGREEMENT, (SEE UPDATE NOTE). PAULA AT BEDSIDE WITH PT AT THIS TIME.
--- NOTE | 2020-10-14 10:52 | NUR ---
pt's at bedside at start of shift, pastoral care at bedside as well. pt's notified this rn when ready to leave, services called by christine wire charger.
== END 2020-10-14 10:15 | DRG 177 ==
LOC: ER 16:11 → ICUW 19:32 → PCU 19:32
PROVIDERS: Internal Medicine; Nurse Practitioner Acute Care; Student in an Organized Health Care Education/Training Program; ADMIT Internal Medicine
PROC: 5A09557 Assistance with Respiratory Ventilation, Greater than 96 Consecutive Hours, Continuous Positive Airway Pressure (ICD-10-PCS; principal; 2020-10-06)
PROC: 8E0ZXY6 Isolation (ICD-10-PCS; 2020-10-06)
PROC: 3E0333Z Introduction of Anti-inflammatory into Peripheral Vein, Percutaneous Approach (ICD-10-PCS; 2020-10-06)
PROC: XW033E5 Introduction of Remdesivir Anti-infective into Peripheral Vein, Percutaneous Approach, New Technology Group 5 (ICD-10-PCS; 2020-10-06)
PROC: 3E03329 Introduction of Other Anti-infective into Peripheral Vein, Percutaneous Approach (ICD-10-PCS; 2020-10-06)
DX: U07.1 COVID-19 (principal); J12.82 Pneumonia due to coronavirus disease 2019; J96.02 Acute respiratory failure with hypercapnia; J96.01 Acute respiratory failure with hypoxia; Z68.44 Body mass index [BMI] 60.0-69.9, adult; E66.2 Morbid (severe) obesity with alveolar hypoventilation; N39.0 Urinary tract infection, site not specified; E87.3 Alkalosis; Z66 Do not resuscitate; R74.01 Elevation of levels of liver transaminase levels; Z88.1 Allergy status to other antibiotic agents; Z51.5 Encounter for palliative care; E87.6 Hypokalemia; B96.20 Unspecified Escherichia coli [E. coli] as the cause of diseases classified elsewhere; Z53.29 Procedure and treatment not carried out because of patient's decision for other reasons; T37.5X5A Adverse effect of antiviral drugs, initial encounter
CPT/HCPCS: 36415; 36600; 51702; 71045; 71260; 80048; 80053; 81001; 82803; 83605; 83735; 84484; 85025; 87040; 87077; 87086; 87186; 93005; 93010; 94660; 94762; 96365; 96366; 96375; 99285-25; A9270; J0696; J1100; J1170; J1630; J1650; J2060; J2270; J2405; J2765; J3480; J7030; Q9967; U0004